=== PATIENT | female | born 1960 | race Caucasian/White ===

== ENCOUNTER 2018-05-18 15:45 | Emergency (ER) | payer SELFPAY ==
[2018-05-18 16:22] LABS: BASOPHILS % 0.3 (0.0-1.5); EOSINOPHILS % 1.5 % (0.0-6.8); MEAN CORPUSCULAR HEMOGLOBIN 29.8 pg (28.0-34.0); MEAN CORPUSCULAR VOLUME 90.3 fl (80.0-100.0); MONOCYTES % 3.3 % (0.0-11.0); NEUTROPHILS # 5.5 # k/uL (1.4-7.7)
[2018-05-18 16:38] LABS: eGFR (African) > 60; eGFR (Non-African) > 60
[2018-05-18] MEDS ORDERED: 0.9 % SODIUM CHLORIDE 1,000 ML IV ONE (16:46)
[2018-05-18] MEDS ORDERED: KETOROLAC TROMETHAMINE 30 MG/1ML VIAL IVP ONE (16:46)
[2018-05-18] MEDS ORDERED: fentaNYL CITRATE/PF 100 MCG/ 2ML AMP IVP ONE (16:50)
[2018-05-18] MEDS ORDERED: fentaNYL CITRATE/PF 100 MCG/ 2ML AMP ONE (16:51)
[2018-05-18] MEDS ORDERED: ONDANSETRON HCL/PF 4 MG/ 2ML VIAL ONE (16:58)
[2018-05-18] MEDS ORDERED: ONDANSETRON HCL/PF 4 MG/ 2ML VIAL IVP ONE (16:59)
[2018-05-18] MEDS ORDERED: TAMSULOSIN HCL 0.4 MG CAP.ER.24H PO ONE (17:42)
--- NOTE | 2018-05-18 17:42 | ED Physician Documentation ---
Flank Pain - HISTORIAN Historian: patient - HPI Stated Complaint: side pain Chief Complaint: Flank Pain Onset: hours (after lunch) Duration: worse Timing: worse Severity: severe Quality: pain Further Comments: yes (58 year old female patient presents with left flank pain which started after lunch today and has become progressively worse. Denies fever, c/o nausea, denies vomiting or diarrhea. No previous history of renal calculi. PCP - Dr Dom Richter) - ROS CONST: no problems GI/: none CVS/RESP: none EYES/ENT: none MS/SKIN/LYMPH: none NEURO/PSYCH: none - SOCIAL HX Smoking History: non-smoker - FAMILY HX Family History: none - PAST HX Past History: none Ischemic Bowel Risk Factors: none Other History: none Surgeries/Procedures: cholecystectomy, hysterectomy, other (hernia repair) Medications: see nurse note Allergies: NKDA - VITAL SIGNS Vital Signs: Vital Signs Temp Pulse Resp BP Pulse Ox 98.3 F 81 16 159/83 97 05/18/18 15:56 05/18/18 15:56 05/18/18 15:56 05/18/18 15:56 05/18/18 15:56 - REVIEWED ASSESSMENTS Nursing Assessment Reviewed: Yes Vitals Reviewed: Yes Progress - Progress Progress: Reviewed lab and UA results with patient; will progress with CT renal protocol. IV fluids and toradol given in Er. Reviewed CT results with patient; 2 mm left proximal stone. Reviewed discharge instructions and plan of care. Patient verbalized understanding. Disc and report provided. discharged with flomax, toradol and Chester for pain. Call from [facility] - new policy regarding pain medication; Chester changed to 2 tabs q2h prn pain, #30 ED Results Lab/Radiology - Lab Results Lab Results: Lab Results 05/18/18 05/18/18 16:15 16:15 WBC 7.40 K/ul K/ul (4.00-12.00) RBC 5.14 M/ul M/ul (3.90-5.20) Hgb 15.3 g/dL g/dL (12.0-16.0) Hct 46.4 % % (34.5-46.5) MCV 90.3 fl fl (80.0-100.0) MCH 29.8 pg pg (28.0-34.0) MCHC 33.0 g/dL g/dL (30.0-36.0) RDW 12.5 % % (11.3-14.3) Plt Count 221 K/mm3 K/mm3 (130-400) Neut % (Auto) 74.3 % % (39.0-79.0) Lymph % (Auto) 19.5 % % (16.0-50.0) Burt % (Auto) 3.3 % % (0.0-11.0) Eos % (Auto) 1.5 % % (0.0-6.8) Baso % (Auto) 0.3 (0.0-1.5) Neut # (Auto) 5.5 # k/uL # k/uL (1.4-7.7) Lymph # (Auto) 1.4 # k/uL # k/uL (0.6-4.0) Burt # (Auto) 0.2 # k/uL # k/uL (0.0-0.9) Eos # (Auto) 0.1 # k/uL # k/uL (0.0-0.6) Baso # (Auto) 0.0 # k/uL # k/uL (0.0-0.5) Reactive Lymphs % 1.0 % % (0.0-5.0) Reactive Lymphs # 0.1 # k/uL # k/uL (0.0-0.8) Sodium 143 mmol/L mmol/L (136-145) Potassium 3.6 mmol/L mmol/L (3.5-5.1) Chloride 103 mmol/L mmol/L (98-107) Carbon Dioxide 27 mmol/L mmol/L (22-30) BUN 16 mg/dL mg/dL (7-17) Creatinine 0.90 mg/dL mg/dL (0.52-1.04) Estimated Creat Clear 141 Est GFR ( Amer) > 60 (60 - ) Est GFR (Non-Af Amer) > 60 (60 - ) Glucose 126 mg/dL H mg/dL (74-106) Calcium 9.1 mg/dL mg/dL (8.4-10.2) Total Bilirubin 0.7 mg/dL mg/dL (0.2-1.3) AST 18 U/L U/L (15-46) ALT 35 U/L U/L (13-69) Alkaline Phosphatase 81 U/L U/L (38-126) Total Protein 7.6 g/dL g/dL (6.3-8.2) Albumin 4.3 g/dL g/dL (3.5-5.0) Lipase 78 U/L U/L (23-300) - Radiology Radiology Impressions: Examination: CT Abdomen/pelvis History: FLANK PAIN; HEMATURIA; NAUSEA STARTED TODAY STONE PROTOCAL (Hx) Comparison exams: None available Technique: CT Abdomen/pelvis without IV protocol. Findings: Liver, spleen, adrenals, pancreas, and kidneys are without gross irregularity given exam technique. Surgical clips gallbladder fossa. Left kidney without suspicious calcification. Mild prominence of the left intrarenal collecting system and proximal ureter. Within the proximal left ureter is a 2 mm calcification. Remainder of the left ureter without abnormal dilation. No suspicious right renal calcifications. Right ureter is nondilated in its course through the abdomen and pelvis. No central calcifications. Bladder margin within normal limits. Abdominal aorta without aneurysm or peripheral atherosclerotic disease. Cardiac silhouette is not enlarged. No pericardial effusion. Bowel unopacified limiting evaluation. No abnormal dilation. Stool within the large bowel limiting sensitivity. No mesenteric inflammatory changes or free fluid. Appendix is visualized and is without inflammatory changes. Scattered sigmoid diverticula. No adjacent inflammation. Osseous structures demonstrate mild degenerative spurring. Lung bases demonstrate atelectasis without infiltrate. No effusion. Impression: 2 mm calcification within the proximal left ureter with dilation of the ureter and internal collection system - obstructive uropathy. No acute upper abdominal organ inflammatory process. Sigmoid diverticulosis. No evidence for acute diverticulitis. No abnormal bowel dilation or inflammation. No lung base consolidation or effusion. - Orders Orders: ED Orders Category Date Time Status Place IV Lock 1T Care 05/18/18 16:46 Active RENAL STONE PROTOCOL [CT ABD & PELVIS W/O CON] Stat Exams 05/18/18 Taken CBC/PLATELET/DIFF Stat Lab 05/18/18 16:15 Completed CMP Stat Lab 05/18/18 16:15 Completed LIPASE Stat Lab 05/18/18 16:15 Completed UA W/MICRO IF INDICATED Stat Lab 05/18/18 15:55 Ordered 0.9 % Sodium Chloride [Normal Saline] 1,000 ml Med 05/18/18 16:46 Discontinued IV NOW Ketorolac Tromethamine [Toradol] Med 05/18/18 16:46 Discontinued 30 mg IVP NOW ONE Ondansetron HCl/Pf [Zofran 4 mg/2 ml] Med 05/18/18 16:58 Discontinued 4 mg .ROUTE .STK-MED ONE Ondansetron HCl/Pf [Zofran 4 mg/2 ml] Med 05/18/18 16:59 Discontinued 4 mg IVP NOW ONE fentaNYL CITRATE/PF [Duragesic] Med 05/18/18 16:51 Discontinued 100 mcg .ROUTE .STK-MED ONE fentaNYL CITRATE/PF [Duragesic] Med 05/18/18 16:50 Discontinued 50 mcg IVP NOW ONE Abdominal Pain Physical Exam - Physical Exam General Appearance: moderate distress EENT: eye inspection normal, ENT inspection normal, pharynx normal, no signs of dehydration, STEVEN, no nystagmus, TM's nml RESPIRATORY: no resp distress, chest non-tender, breath sounds normal CVS: reg rate & rhythm, heart sounds normal, equal pulses, no murmur, no gallop , PMI nml, no JVD, no friction rub, 24 ABDOMEN: soft, no organomegaly, normal bowel sounds, no abdominal bruit, no distension BACK: normal inspection, CVA tenderness (L) SKIN: normal color, warm/dry, NR, INT, PAL, DR EXTREMITIES: non-tender, normal range of motion, no evidence of injury, no edema , J, [employer] NEURO: oriented X3, CN's nml as tested, motor nml, sensation nml Vital Signs: Vital Signs Temp Pulse Resp BP Pulse Ox 98.3 F 81 16 159/83 97 05/18/18 15:56 05/18/18 15:56 05/18/18 15:56 05/18/18 15:56 05/18/18 15:56 Discharge Clincal Impression: Renal calculus, left Prescriptions: Ketorolac Tromethamine [Toradol] 10 mg PO TID #15 tablet Tamsulosin HCl [Flomax] 0.4 mg PO [id number] #7 cap.er.24h Referrals: Primary Doctor,No [Primary Care Provider] - 2 Days Additional Instructions: supervisor roller shop your prescription and start it TOMORROW. Increase your fluid intake to at least 64 oz of water a day Strain all urine. If the stone is passed, place it in a specimen cup and take it to your primary care physician for analysis. Do not take ibuprofen or any other NSAID while you are taking Toradol (ketoralac ) Condition: Stable Disposition: 01 HOME, SELF-CARE Decision to Admit: NO Decision Time: 17:45
[2018-05-18 18:15] VITALS: BP 140/82
--- NOTE | 2018-05-19 06:57 | Diagnostic Imaging Report ---
OSKAR HENRY (THERMITE BOMB LOADER) - ER [facility] [address] [facility] [address] [place], [place]. [address] Report Submission Date: May 18, 2018 5:40:18 PM CDT Patient Study Name: CE MENDEZ Date: May 18, 2018 5:09:17 PM CDT Modality Type: CT\SR Gender: F Description: CT ABD PELVIS W/O CO : 64 Institution: [facility] Physician: OSKAR HENRY (THERMITE [employer] LOADER) - ER Examination: CT Abdomen/pelvis History: FLANK PAIN; HEMATURIA; NAUSEA STARTED TODAY STONE PROTOCAL (Hx) Comparison exams: None available Technique: CT Abdomen/pelvis without IV protocol. Findings: Liver, spleen, adrenals, pancreas, and kidneys are without gross irregularity given exam technique. Surgical clips gallbladder fossa. Left kidney without suspicious calcification. Mild prominence of the left intrarenal collecting system and proximal ureter. Within the proximal left ureter is a 2 mm calcification. Remainder of the left ureter without abnormal dilation. No suspicious right renal calcifications. Right ureter is nondilated in its course through the abdomen and pelvis. No central calcifications. Bladder margin within normal limits. Abdominal aorta without aneurysm or peripheral atherosclerotic disease. Cardiac silhouette is not enlarged. No pericardial effusion. Bowel unopacified limiting evaluation. No abnormal dilation. Stool within the large bowel limiting sensitivity. No mesenteric inflammatory changes or free fluid. Appendix is visualized and is without inflammatory changes. Scattered sigmoid diverticula. No adjacent inflammation. Osseous structures demonstrate mild degenerative spurring. Lung bases demonstrate atelectasis without infiltrate. No effusion. Impression: 2 mm calcification within the proximal left ureter with dilation of the ureter and internal collection system - obstructive uropathy. No acute upper abdominal organ inflammatory process. Sigmoid diverticulosis. No evidence for acute diverticulitis. No abnormal bowel dilation or inflammation. No lung base consolidation or effusion. Electronically signed on May 18, 2018 5:40:18 PM CDT by: Jordi BRINK
[2018-05-19 08:01] LABS: APPEARANCE,URINE CLOUDY (CLEAR); COLOR,URINE YELLOW (YELLOW); OCCULT BLOOD,URINE 3+ (NEGATIVE); UROBILINOGEN URINE 0.2 Eu (0.2-1.0)
== END 2018-05-18 18:13 | disposition home or self-care (01) ==
LOC: ED 15:45
DX: N20.0 Calculus of kidney (principal)
CPT/HCPCS: 74176; 80053; 81002; 83690; 85025; J1885; J2405; J3010; J7030; 96365; 96366; 96375; 99284; S1016